=== PATIENT | male | born 1985 | race Caucasian/White ===

== ENCOUNTER 2023-02-17 18:46 | Emergency (ER) | payer OTHER ==
[~2023-02-17] VITALS: Ht 175.3 cm; Wt 83.9 kg
[2023-02-17] MEDS ORDERED: AMOXICILLIN-CLAVUL 875-125MG TABLET PO ONE (19:45)
[2023-02-17] MEDS ORDERED: TDAP DIPH,PERTUSS,TET VAC/PF 0.5 ML DISP.SYRIN IM ONE ×2 (19:45→19:48)
[2023-02-17] MEDS ORDERED: AMOXICILLIN-CLAVUL 875-125MG TABLET ONE (19:48)
[2023-02-17 19:59] VITALS: BP 139/100; O2SAT 99
== END 2023-02-17 20:03 | disposition home or self-care (01) ==
LOC: ER 18:48
DX: S71.152A Open bite, left thigh, initial encounter (principal); W54.0XXA Bitten by dog, initial encounter; Y93.89 Activity, other specified; Y92.89 Other specified places as the place of occurrence of the external cause; Y99.8 Other external cause status
CPT/HCPCS: 90715; A4606; A4663